=== PATIENT | male | born 1975 | race African-American/Black ===

== ENCOUNTER 2022-04-17 18:47 | Emergency (ER) | payer SELFPAY ==
[~2022-04-17] VITALS: Ht 167.6 cm; Wt 91.0 kg
[2022-04-17 20:03] VITALS: BP 140/81
[2022-04-17] MEDS ORDERED: ACET-1158 PO (21:20)
[2022-04-17] MEDS ORDERED: AMOX-277 PO (21:20)
== END 2022-04-17 21:54 | disposition home or self-care (01) ==
LOC: ER 18:49
DX: U07.1 COVID-19 (principal); J06.9 Acute upper respiratory infection, unspecified
CPT/HCPCS: 36415; 87426; 87804